=== PATIENT | male | born 1985 | race Caucasian/White ===

== ENCOUNTER 2021-02-14 14:14 | Emergency (ER) | payer OTHER ==
[2021-02-14 14:27] VITALS: BP 117/77; PULSE 91; TEMP 98.2; BMI 38.0
[2021-02-14] MEDS ORDERED: KETOROLAC TROMETHAMINE 30 MG/1 ML VIAL IM ONE (15:31)
[2021-02-14] MEDS ORDERED: KETOROLAC TROMETHAMINE 30 MG/1 ML VIAL ONE (15:57)
== END 2021-02-14 17:19 | disposition home or self-care (01) ==
LOC: JER 14:14
PROC: 3E0233Z Introduction of Anti-inflammatory into Muscle, Percutaneous Approach (ICD-10-PCS; principal; 2021-02-14)
DX: M54.2 Cervicalgia (principal); M54.9 Dorsalgia, unspecified
CPT/HCPCS: 93005; 93010; 96372; 99284-25

== ENCOUNTER 2021-03-08 12:50 | Emergency (ER) | payer OTHER ==
[2021-03-08 13:10] VITALS: BP 110/71; PULSE 94; TEMP 98.4; BMI 35.6
== END 2021-03-08 13:50 | disposition home or self-care (01) ==
LOC: JERFT 12:50
DX: B02.22 Postherpetic trigeminal neuralgia (principal)
CPT/HCPCS: 36415; 86618; 99283-25